=== PATIENT | male | born 1990 | race Caucasian/White ===

== ENCOUNTER 2018-02-16 21:05 | Emergency (ER) | payer OTHER ==
[~2018-02-16] VITALS: Ht 182.9 cm; Wt 77.1 kg
[2018-02-16] MEDS ORDERED: JANTOVEN10 MG PO (21:20)
[2018-02-16] MEDS ORDERED: ASPIR-LOW81 MG PO (21:21)
[2018-02-16] MEDS ORDERED: ATENOLOL 25MG T25 M1 PO (21:21)
[2018-02-16 21:53] VITALS: BP 134/66
== END 2018-02-16 21:54 | disposition home or self-care (01) ==
LOC: M.ERS 21:05
DX: T20.20XA Burn of second degree of head, face, and neck, unspecified site, initial encounter (principal); T22.112A Burn of first degree of left forearm, initial encounter; T31.0 Burns involving less than 10% of body surface; Z88.1 Allergy status to other antibiotic agents

== ENCOUNTER 2018-04-18 22:23 | Emergency (ER) | payer BC ==
[~2018-04-18] VITALS: Ht 182.9 cm; Wt 77.1 kg
[~2018-04-18 22:23] MED LIST: ASPIR-LOW81 MG PO; ATENOLOL 25MG T25 M1 PO; JANTOVEN10 MG PO
[2018-04-18] MEDS ORDERED: MAGOX 400400 MG PO (22:31)
[2018-04-18 23:05] LABS: ABSOLUTE BASOPHILS 0.1 thou/uL (0.0-0.2); ABSOLUTE EOSINOPHILS 0.2 thou/uL (0.0-0.7); ABSOLUTE LYMPHOCYTES 2.9 thou/uL (0.8-5.3); ABSOLUTE MONOCYTES 1.1 thou/uL (0.0-1.2); ABSOLUTE NEUTROPHILS 5.4 thou/uL (1.6-8.1); BASOPHILS 0.7 %; HEMATOCRIT 42.1 % (42.0-52.0); HEMOGLOBIN 13.9 gm/dL (14.0-18.0); LYMPHOCYTES 30.3 %; MCH 27.5 pg (26.0-34.0); MCHC 33.1 g/dL (28.0-37.0); MCV 82.9 fL (80.0-100.0); MPV 8.4 fl. (7.2-11.1); NUCLEATED RBCS 0 /100WBC; PLATELET COUNT* 250 thou/uL (150-400); RBC 5.07 mil/uL (4.50-6.00); RDW-CV 14.9 % (10.5-14.5); WBC 9.6 thou/uL (4.0-11.0)
[2018-04-18 23:21] LABS: CALCIUM 8.8 mg/dL (8.5-10.1); CREATININE 0.9 mg/dL (0.6-1.3); POTASSIUM 3.5 mmol/L (3.5-5.1)
[2018-04-18 23:22] LABS: PROTIME 20.6 Seconds (9.20-11.50)
[2018-04-18 23:26] LABS: ALBUMIN 4.1 g/dL (3.4-5.0); TOTAL BILIRUBIN 0.4 mg/dL (<0.1-1.0)
[2018-04-18 23:41] LABS: MAGNESIUM 2.2 mg/dL (1.8-2.4); TROPONIN-I LEVEL <0.06 ng/mL (<0.06)
[2018-04-19 00:45] VITALS: BP 109/62
--- NOTE | 2018-04-19 11:34 | EKG ---
[place] [address] ELECTROCARDIOGRAM REPORT Name: GUERRABOZENA Brenner [id number] Admission: 04/18/18 Attend Phys: Discharge: 04/19/18 Date of : [birth year] Report #: [id number] THIS REPORT FOR: //name// [facility] ED Test Date: 2018-04-18 Test Time: 22:27:31 Pat Name: BOZENA GUERRA Department: Room: Gender: M Icu Tech: Mahsa BARR : 1990 Requested By: Zaira Moise Order Number: [id number] Alexis MD: Agus Gruber Measurements Intervals [place] Rate: 82 P: [place]: QRS: -34 QRSD: 103 T: 49 QT: 363 QTc: 424 Interpretive Statements sinus rhythm early transition artifact noted Left ventricular hypertrophy No previous ECG available for comparison Electronically Signed On 04-19-2018 11:34:32 CREDIT CARD SPECIALIST by Agus Gruber [email or web address] <ELECTRONICALLY SIGNED> By: Agus Gruber MD, [facility] 04/19/18 1134 [id number] Agus Gruber MD, FACC /EPI
== END 2018-04-19 00:49 | disposition home or self-care (01) ==
LOC: M.ERS 22:23
PROVIDERS: Emergency Medicine
DX: R00.2 Palpitations (principal); Z89.021 Acquired absence of right finger(s); Z88.1 Allergy status to other antibiotic agents

== ENCOUNTER 2018-06-17 10:10 | Emergency (ER) | payer BC ==
[~2018-06-17] VITALS: Ht 182.9 cm; Wt 77.1 kg
[~2018-06-17 10:10] MED LIST changes: +MAGOX 400400 MG PO
[2018-06-17 10:37] LABS: HEMATOCRIT 41.6 % (42.0-52.0); MCH 27.8 pg (26.0-34.0); MCHC 33.6 g/dL (28.0-37.0); MCV 82.6 fL (80.0-100.0); MPV 8.4 fl. (7.2-11.1); NUCLEATED RBCS 0 /100WBC; PLATELET COUNT* 197 thou/uL (150-400); RBC 5.04 mil/uL (4.50-6.00); RDW-CV 14.1 % (10.5-14.5); WBC 8.8 thou/uL (4.0-11.0)
[2018-06-17 10:49] LABS: APTT 34.1 Seconds (25.0-31.3); INR 1.5; PROTIME 15.5 Seconds (9.20-11.50)
[2018-06-17 10:58] LABS: ANION GAP 6 mmol/L (7-16); BUN 12 mg/dL (7-18); CALCIUM 8.7 mg/dL (8.5-10.1); CHLORIDE 104 mmol/L (98-107); CO2 30 mmol/L (21-32); CREATININE 0.7 mg/dL (0.6-1.3); GLUCOSE 93 mg/dL (70-99); POTASSIUM 3.7 mmol/L (3.5-5.1); SODIUM 140 mmol/L (136-145); TROPONIN-I LEVEL <0.06 ng/mL (<0.06)
[2018-06-17 11:03] LABS: ALKALINE PHOSPHATASE 66 U/L (46-116); CK-MB MASS 0.8 ng/mL (<0.5-3.6); LIPASE 113 U/L (73-393); NT-PRO BRAIN NAT PEPTIDE 92 pg/mL (<300); SGOT 16 U/L (15-37); SGPT 21 U/L (30-65); TOTAL BILIRUBIN 0.4 mg/dL (<0.1-1.0); TOTAL PROTEIN 7.6 g/dL (6.4-8.2)
[2018-06-17 11:16] LABS: ABSOLUTE EOSINOPHILS 0.1 thou/uL (0.0-0.7); ABSOLUTE LYMPHOCYTES 1.8 thou/uL (0.8-5.3); ABSOLUTE MONOCYTES 0.6 thou/uL (0.0-1.2); ABSOLUTE NEUTROPHILS 6.2 thou/uL (1.6-8.1); PLATELET ESTIMATE ADEQUATE
[2018-06-17 11:29] VITALS: BP 100/60
--- NOTE | 2018-06-18 16:34 | EKG ---
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: : 1990 Requested By: Brian Baltazar Order Number: [id number] MD: Rickey Saunders Measurements Intervals [place] Rate: 72 P: 68 [place]: 166 QRS: -1 QRSD: 98 T: 52 QT: 344 QTc: 377 Interpretive Statements Sinus rhythm Left atrial enlargement Baseline wander in lead(s) V5 Compared to ECG 04/18/2018 22:27:31 Atrial abnormality now present Left ventricular hypertrophy no longer present Electronically Signed On 06-18-2018 16:34:04 FIELD OPERATOR by Rickey Saunders [email or web address] <ELECTRONICALLY SIGNED> By: Rickey Saunders MD, [facility] 06/18/18 1634 1015 1015 Rickey Saunders MD, [facility] /EPI
== END 2018-06-17 11:29 | disposition home or self-care (01) ==
LOC: M.ERS 10:10
PROVIDERS: Family Medicine
DX: R07.89 Other chest pain (principal); Z88.8 Allergy status to other drugs, medicaments and biological substances

== ENCOUNTER 2019-04-21 23:20 | Emergency (ER) | payer BC ==
[~2019-04-21] VITALS: Ht 182.9 cm; Wt 81.7 kg
[2019-04-21 23:46] LABS: ABSOLUTE BASOPHILS 0.1 thou/uL (0.0-0.2); ABSOLUTE EOSINOPHILS 0.2 thou/uL (0.0-0.7); ABSOLUTE LYMPHOCYTES 2.8 thou/uL (0.8-5.3); ABSOLUTE MONOCYTES 1.1 thou/uL (0.0-1.2); ABSOLUTE NEUTROPHILS 6.7 thou/uL (1.6-8.1); BASOPHILS 0.7 %; EOSINOPHILS 1.4 %; HEMATOCRIT 40.6 % (42.0-52.0); HEMOGLOBIN 13.6 gm/dL (14.0-18.0); LYMPHOCYTES 25.9 %; MCH 27.8 pg (26.0-34.0); MCHC 33.5 g/dL (28.0-37.0); MONOCYTES 10.1 %; MPV 8.5 fl. (7.2-11.1); NUCLEATED RBCS 0 /100WBC; PLATELET COUNT* 220 thou/uL (150-400); POLYS 61.9 %; RBC 4.88 mil/uL (4.50-6.00); RDW-CV 14.4 % (10.5-14.5); WBC 10.8 thou/uL (4.0-11.0)
[2019-04-22 00:03] LABS: CREATININE 0.7 mg/dL (0.6-1.3); POTASSIUM 3.5 mmol/L (3.5-5.1)
[2019-04-22 00:13] LABS: ALBUMIN 4.3 g/dL (3.4-5.0); MAGNESIUM 1.8 mg/dL (1.8-2.4); TOTAL BILIRUBIN 0.5 mg/dL (<0.1-1.0)
[2019-04-22 01:05] LABS: APTT 27.4 Seconds (25.0-31.3); INR 1.1; PROTIME 11.1 Seconds (9.20-11.50)
[2019-04-22 04:17] VITALS: BP 122/75
--- NOTE | 2019-04-23 08:41 | EKG ---
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: : 1990 Requested By: Romulo Meeks Order Number: [id number] MD: Agus Gruber Measurements Intervals [place] Rate: 73 P: 50 SC: 146 QRS: -13 QRSD: 106 T: 44 QT: 364 QTc: 401 Interpretive Statements Sinus rhythm RSR' in V1 or V2, right VCD or RVH Probable left ventricular hypertrophy Compared to ECG 06/17/2018 10:15:21 Atrial abnormality no longer present Electronically Signed On 04-23-2019 8:40:49 MINE ENVIRONMENTAL ENGINEER by Agus Gruber [email or web address] <ELECTRONICALLY SIGNED> By: Agus Gruber MD, [facility] 04/23/19 0840 2325 2325 Agus Gruber MD, [facility] /EPI
== END 2019-04-22 04:19 | disposition left against medical advice (07) ==
LOC: M.ERS 23:20 → M.TBA-ER 04-22 02:18 → M.ERS 04-22 02:18
PROVIDERS: Emergency Medicine Emergency Medical Services
DX: R07.89 Other chest pain (principal); Z88.8 Allergy status to other drugs, medicaments and biological substances

== ENCOUNTER 2021-05-15 05:42 | Emergency (ER) | payer BC ==
[~2021-05-15] VITALS: Ht 182.9 cm; Wt 83.0 kg
[2021-05-15 06:17] LABS: HEMATOCRIT 44.1 % (42.0-52.0); HEMOGLOBIN 14.7 gm/dL (14.0-18.0); MCH 27.5 pg (26.0-34.0); MCHC 33.3 g/dL (28.0-37.0); MCV 82.7 fL (80.0-100.0); MPV 8.7 fl. (7.2-11.1); NUCLEATED RBCS 0 /100WBC; PLATELET COUNT* 212 thou/uL (150-400); RBC 5.33 mil/uL (4.50-6.00); RDW-CV 14.4 % (10.5-14.5)
[2021-05-15 06:52] LABS: INR 1.9
[2021-05-15 06:53] LABS: CALCIUM 8.6 mg/dL (8.5-10.1); CREATININE 0.8 mg/dL (0.6-1.3)
[2021-05-15 06:56] LABS: ALBUMIN 4.3 g/dL (3.4-5.0); MAGNESIUM 1.9 mg/dL (1.8-2.4); TOTAL BILIRUBIN 0.9 mg/dL (<0.1-1.0)
[2021-05-15 07:05] LABS: ABSOLUTE EOSINOPHILS 0.2 thou/uL (0.0-0.7); ABSOLUTE LYMPHOCYTES 0.5 thou/uL (0.8-5.3); ABSOLUTE MONOCYTES 0.4 thou/uL (0.0-1.2); ABSOLUTE NEUTROPHILS 8.9 thou/uL (1.6-8.1); PLATELET ESTIMATE ADEQUATE
[2021-05-15] MEDS ORDERED: ZOFRAN ODT4 MG PO (08:07)
[2021-05-15 08:47] VITALS: BP 126/61
== END 2021-05-15 08:48 | disposition home or self-care (01) ==
LOC: M.ERS 05:42
PROVIDERS: Emergency Medicine
DX: K52.9 Noninfective gastroenteritis and colitis, unspecified (principal); Z20.822 Contact with and (suspected) exposure to COVID-19; R11.2 Nausea with vomiting, unspecified; Z79.01 Long term (current) use of anticoagulants; Z98.890 Other specified postprocedural states; Z79.82 Long term (current) use of aspirin; Z79.899 Other long term (current) drug therapy; Z89.021 Acquired absence of right finger(s); Z88.1 Allergy status to other antibiotic agents